=== PATIENT | male | born 1960 | race Caucasian/White ===

== ENCOUNTER 2022-12-01 11:49 | Emergency (ER) | payer OTHER, MEDICARE, SELFPAY ==
--- NOTE | ~2022-12-01 | XR_ITS ---
XR chest 2V DATE: 12/01/2022 13:25 INDICATION: Productive cough for 2 days. Nonsmoker. TECHNIQUE: 2 views COMPARISON: None FINDINGS: Normal heart size. No hilar or mediastinal enlargement. No pulmonary infiltrate or consolid ation, pleural effusion or pulmonary vascular congestion or pneumothorax is detected. IMPRESSION: No active cardiopulmonary disease Reviewed, dictated and finalized at location L.
[2022-12-01 12:07] VITALS: BP 107/64; PULSE 81; RESP 16; TEMP 37.4; O2SAT 99
[2022-12-01 12:10] VITALS: BP 107/64; PULSE 81; RESP 16; TEMP 37.4; O2SAT 99
--- NOTE | 2022-12-01 12:23 | ED.GENADULT ---
HPI - General Adult General Chief complaint: Upper Respiratory Infection Stated complaint: Sore Throat/Back Pain Source: patient Mode of arrival: ambulatory Limitations: no limitations History of Present Illness HPI narrative: Patient presents for evaluation of sick symptoms for last 2 days. Symptoms include sore throat, productive cough of green sputum, and mild shortness of breath. His grandson is sick however he is not sure what symptoms his grandson has. No fever, chills, nausea, vomiting. He is not taking any medication to assist with the symptoms. He does not smoke. Related Data Home Medications Medication Instructions Recorded Confirmed Eliquis 12/01/22 Flomax 12/01/22 Prilosec 12/01/22 Stool Softener 12/01/22 atenolol 12/01/22 buprenorphine 15 mcg/hour weekly 12/01/22 transdermal patch oxycodone-acetaminophen 5 mg-325 tablet 12/01/22 mg tablet pregabalin 100 mg capsule mg 12/01/22 pregabalin 100 mg capsule mg 12/01/22 Allergies Allergy/AdvReac Type Severity Reaction Status Date / Time No Known Allergies Allergy Verified 12/01/22 12:07 Review of Systems Review of Systems: CONSTITUTIONAL: Denies fever, chills, or sweats. EYES: Denies visual changes, redness, or discharge. ENT: Reports sore throat. Denies rhinorrhea, congestion, or otalgia. CARDIOVASCULAR: Denies chest pain, palpitations, or edema. RESPIRATORY: Reports productive cough of green sputum and mild SOB GASTROINTESTINAL: Denies abdominal pain, nausea, vomiting, or diarrhea. GENITOURINARY: Denies dysuria or hematuria. SKIN: Denies rash or itching. MUSCULOSKELETAL: Reports chronic neck and low back pain which are unchanged from his baseline. Denies joint pain, or myalgia. NEUROLOGIC: Denies headache, numbness, dizziness, or weakness. PSYCHIATRIC: Denies anxiety or depression. [facility] Past Medical History Medical History Atrial fibrillation GERD (gastroesophageal reflux disease) Surgical History Surgical History No pertinent past surgical history Family History Family History Mother Family history non-contributory Social History Social History Substance use: never Living arrangements: with family Gender identity (if verbalized by the patient): Male Sexual Orientation (if Verbalized by the Patient): Straight or Heterosexual Spiritual care concerns: No Exam Narrative: GENERAL: Well-appearing, well-nourished, and in no acute distress. HEAD: Normocephalic, atraumatic. EYES: PERRLA and EOMI. ENT: Nares clear, no rhinorrhea or epistaxis. Mucous membranes moist. Oropharynx without tonsillar hypertrophy exudate or other lesions. Bilateral TMs pearly beauchamp nonbulging NECK: Supple. No adenopathy or masses. No carotid bruits or JVD CHEST: Clear to auscultation. No respiratory distress. No wheezes rales or rhonchi HEART: Regular rate and rhythm. No murmur heard. Normal peripheral pulses. ABDOMEN: Soft, nontender, nondistended, normal active bowel sounds. EXTREMITIES: Normal range of motion. No edema. SKIN: Warm, dry, no rash. NEURO: No focal deficits. Alert and oriented x3. PSYCH: Normal mood and affect. Course Course Emergency Course: THIS IS A 62-YEAR-OLD MALE WHO PRESENTED FOR EVALUATION OF SICK SYMPTOMS. COVID AND STREP WERE BOTH NEGATIVE. CHEST X-RAY NORMAL. EXAM IS CONSISTENT WITH ACUTE VIRAL SYNDROME. RECOMMENDED HE REPEAT A COVID TEST IN 1-2 DAYS. [id number] [employer] FOR SYMPTOM MANAGEMENT. FOLLOW UP WITH PRIMARY PROVIDER. GO TO THE ER FOR WORSENING SYMPTOMS. PATIENT IN AGREEMENT WITH PLAN OF CARE. Level of Care: Express Care Visit Vital Signs Vital signs: Vital Signs Temperature 37.4 C 12/01/22 12:07 Pulse Rate 81 12/01/22
== END 2022-12-01 13:42 | disposition home or self-care (01) ==
PROVIDERS: Emergency Provider Nurse Practitioner
DX: B34.9 Viral infection, unspecified (principal); Z20.822 Contact with and (suspected) exposure to COVID-19; I48.91 Unspecified atrial fibrillation; K21.9 Gastro-esophageal reflux disease without esophagitis
CPT/HCPCS: 71046; 87081; 87426; 87880; 99203; C9803; G0463

== ENCOUNTER 2024-06-20 15:47 | Emergency (ER) | payer MEDICARE, OTHER, SELFPAY ==
--- NOTE | 2024-06-20 15:53 | ED_ITS ---
HPI - Extremity Injury (Upper) General Chief Complaint: Wound/Laceration Stated Complaint: left pinky nail injury Time Seen by Provider: 06/20/24 16:25 Source: patient and RN notes reviewed Mode of arrival: ambulatory Limitations: no limitations History of Present Illness HPI narrative: 63-year-old male presents with concern for inflammation, redness, tenderness around the nail bed of the 5th digit of the left hand. Reports about 2 weeks ago he put a nail through his fingernail. Reports since then the nail became loose, and he had some purulent drainage from the base of the nail. Reports today while he was washing dishes half of the fingernail felt loose and soft so he removed half the fingernail. Reports he has had worsening redness, tenderness proximal to the the nail bed Related Data Home Medications ?Medication ?Instructions ?Recorded ?Confirmed ?Last Taken ?Type Eliquis 12/01/22 Unknown History Flomax 12/01/22 Unknown History Prilosec 12/01/22 Unknown History Stool Softener 12/01/22 Unknown History atenolol 12/01/22 Unknown History buprenorphine 15 mcg/hour weekly 1 patch transdermal WEEKLY 12/01/22 06/20/24 Unknown History transdermal patch oxycodone-acetaminophen 5 mg-325 tablet 12/01/22 Unknown History mg tablet pregabalin 100 mg capsule mg 12/01/22 Unknown History pregabalin 100 mg capsule mg 12/01/22 Unknown History Allergies Allergy/AdvReac Type Severity Reaction Status Date / Time No Known Allergies Allergy Verified 06/20/24 16:07 Review of Systems Review of Systems: CONSTITUTIONAL: Denies malaise, chills, sweats, or fever. SKIN: Denies rash or itching, open skin, laceration, abrasion, redness, warmth, swelling. MUSCULOSKELETAL: Reports pain, swelling, redness Beneath the nail bed of 5th digit of the left hand NEUROLOGIC: Denies numbness, weakness All systems reviewed & are unremarkable except as noted in HPI and below PMFSH Past Medical History Medical History Atrial fibrillation GERD (gastroesophageal reflux disease) Surgical History Surgical History No pertinent past surgical history Family History Family History Mother Family history non-contributory Social History Social History Substance use: never Living arrangements: with family Gender identity (if verbalized by the patient): Male Sexual Orientation (if Verbalized by the Patient): Straight or Heterosexual Spiritual care concerns: No Comments At time of signature, agree with nursing past medical, surgical, social and family history. There is no relevant family history pertinent to the presenting complaint Exam Narrative: GENERAL: Well-appearing, well-nourished, and in no acute distress. HEAD: Normocephalic, atraumatic. EYES: PERRLA, conjunctivae clear NECK: Supple. CHEST: Speaks in full sentences. No respiratory distress. HEART: Regular rate and rhythm. Normal and equal peripheral pulses. EXTREMITIES: 5th digit of the left hand has grossly normal strength and sensation, grossly normal range of motion. 5/5 strength with digit flexion and extension. Normal sensation with sensitivity to light touch and pain. Tenderness of the base of the nail the 5th digit. Skin warm, dry, pink. Capilla ry refill less than 3 seconds. SKIN: Warm, dry, no rash. Erythema, warmth,, edema noted the base of the nail bed of the 5th digit of the left hand, no fluctuation noted. Nailbed disrupted, half of the nail is removed with a crusty tissue been NEURO: Alert and oriented x3. PSYCH: Normal mood and affect Course Course Emergency Course: Patient is aware of diagnosis, understands and agrees to treatment plan. Anticipatory guidance given. Patient agrees to follow-up as directed and is aware of reasons to seek care at the emergency department. Portions of this record may have been created with voice recognition software Level of Care: Express Care Visit Vital Signs Vital signs: Reviewed. Critical Care Time Critical Care Time Critical Care Time: No Discharge Plan Discharge Clinical Impression: Paronychia Patient Disposition: Home, Self-Care Condition: Stable Instructions: Antibiotic Form, Paronychia (ED) Additional Instructions: Soak your nail: Soak your nail in a mixture of equal parts vinegar and water 3 or 4 times each day. This will help decrease inflammation. Apply a warm compress: Soak a washcloth in warm water and place it on your nail. This will help decrease inflammation. Elevate: Raise your nail above the level of your heart as often as you can. This will help decrease swelling and pain. Prop your nail on pillows or blankets to keep it elevated comfortably. Use lotion: Apply lotion after you wash your hands. This will prevent your skin from becoming too dry. Please follow-up with your primary care doctor in the next 1-2 days. If you cannot follow-up with your primary care doctor please go to the ED for any urgent issues. 2) If you have any worsening of symptoms or any other concerns please go to the ED immediately. 3) Please take medications as prescribed andcontinue taking your home medications as usual. Patient Language: Greek Prescriptions: New sulfamethoxazole-trimethoprim 800-160 mg tablet 1 tablet PO Q12H 7 Days Qty: 14 0RF No Action oxycodone-acetaminophen 5-325 mg tablet pregabalin 100 mg capsule pregabalin 100 mg capsule buprenorphine 15 mcg/hour patch weekly 1 patch transdermal WEEKLY Eliquis Flomax Prilosec Stool Softener atenolol Follow-up/Referrals: [facility] [Primary Care Provider] - Time of Disposition: 16:28
[2024-06-20 16:02] VITALS: BP 105/70; PULSE 71; RESP 14; TEMP 36.6; O2SAT 98
[2024-06-20] MEDS: TETANUS,DIPHTHERIA,AC PERTUSSIS ADULT (0.5 ML) BOOSTRIX IM (16:36)
== END 2024-06-20 16:42 | disposition home or self-care (01) ==
PROVIDERS: Emergency Provider Nurse Practitioner
DX: L03.012 Cellulitis of left finger (principal); Z23 Encounter for immunization; I48.91 Unspecified atrial fibrillation; K21.9 Gastro-esophageal reflux disease without esophagitis
CPT/HCPCS: 90471; 90715; 99213; G0463